=== PATIENT | male | born 1950 | race Caucasian/White ===

== ENCOUNTER 2019-01-05 18:07 | Inpatient (IN) | payer MEDICARE ==
[2019-01-05] MEDS ORDERED: Nitroglycerin 0.4 MG Tab.SL SL ONE (18:21)
[2019-01-05 19:27] LABS: CHLORIDE,CL 103 mmol/L (98-107); SODIUM,NA 140 mmol/L (136-145)
[2019-01-05] MEDS ORDERED: Iopamidol 612 MG/ML 100 ML Bottle IVPUSH ONE (19:58)
[2019-01-05] MEDS ORDERED: Furosemide 40 MG/4 ML VIAL IV ONE (19:58)
--- NOTE | 2019-01-05 20:03 | CR ---
[id number] RAD/RAD Chest PA or AP 1V EXAM: SINGLE VIEW CHEST. INDICATION: SHORTNESS OF BREATH COMPARISON: NO PREVIOUS SIMILAR EXAM IS AVAILABLE FINDINGS: There appears to be in moderate edema. The cardiac silhouette is enlarged. There appear to be surgical changes of the lumbar spine. IMPRESSION: MODERATE CHF. Niko Soto MD 01/05/192001 Thank you for allowing us to participate in the care of your patient.
[2019-01-05] MEDS: amLODIPine 10 MG Tab**PT OWN PO SCH (23:00)
[2019-01-05] MEDS: LISINOPRIL 40 MG PO SCH (23:00)
[2019-01-05] MEDS: CLONIDINE 0.2 MG PO SCH (23:00)
[2019-01-05] MEDS: Sodium Chloride 0.9% 10 ML Syringe FLUSH PRN (23:36)
--- NOTE | 2019-01-06 04:19 | EDM.PDOC ---
ED HPI GENERAL MEDICAL PROBLEM - General Chief Complaint: Respiratory Problem Stated Complaint: SHORTNESS OF BREATH Time Seen by Provider: 01/05/19 18:10 Source of Information: Reports: Patient History Limitations: Reports: Respiratory Distress - History of Present Illness INITIAL COMMENTS - FREE TEXT/NARRATIVE: Pt. present to ER with complaints of respiratory distress. Pt. states that he has been experiencing progressive dyspnea over the past several months, particularly when exerting himself. Pt. has a history of severe hypertension and is on high dose lisinopril, amlodipine, and clonidine. Pt. states that [place] of his ailing mother since April and that he has not had his BP checked during that time. He states that he has been short of breath for most of the summer but worse over the past 24 hours. Denies any cardiac history. He states that he recently had a negative cardiolyte stress test in [place]. He is unsure if he has ever had an echocardiogram. No diaphoresis. No nausea, vomiting, or diarrhea. No recent productive cough or fever. Denies any sick contacts. He denies any chest pain. Pt. states that he does not have an PCP locally. Denies any peripheral edema. States that his urine output has been increased recently. Pt. is on cpap for CRISTIAN and states that he has not had a sleep study recently either. Location: Reports: Chest, Generalized Associated Symptoms: Denies: Diaphoresis, Fever/Chills, Nausea/Vomiting - Related Data Allergies Allergy/AdvReac Type Severity Reaction Status Date / Time No Known Allergies Allergy Verified 01/05/19 18:19 Home Meds: Home Meds Dorzolamide/Timolol [Cosopt 2%-0.5% Ophth Soln] 1 drop EYEBOTH BID 01/05/19 [ History] Esomeprazole [NexIUM] 40 mg PO DAILY 01/05/19 [History] Fenofibrate,Micronized [Fenofibrate] 134 mg PO DAILY 01/05/19 [History] Lisinopril 40 mg PO BID 01/05/19 [History] amLODIPine Besylate [Amlodipine Besylate] 10 mg PO DAILY 01/05/19 [History] cloNIDine HCl [Catapres] 0.2 mg PO TID 01/05/19 [History] metFORMIN HCl [Metformin HCl] 1,000 mg PO BID 04/02/19 [History] Past Medical History Cardiovascular History: Reports: High Cholesterol, Hypertension Endocrine/Metabolic History: Reports: Diabetes, Type II Oncologic (Cancer) History: Reports: Other (See Below) Other Oncologic History: skin - Past Surgical History HEENT Surgical History: Reports: Tonsillectomy Musculoskeletal Surgical History: Reports: Arthroscopic Knee Social & Family History - Tobacco Use Smoking Status *Q: Former Smoker Used Tobacco, but Quit: No Month/Year Tobacco Last Used: 1996 Second Hand Smoke Exposure: No - Caffeine Use Caffeine Use: Reports: Coffee, Soda - Recreational Drug Use Recreational Drug Use: No ED ROS GENERAL - Review of Systems Review Of Systems: See Below Constitutional: Reports: No Symptoms HEENT: Reports: No Symptoms Respiratory: Reports: Shortness of Breath, Cough Cardiovascular: Reports: No Symptoms Endocrine: Reports: Fatigue GI/Abdominal: Reports: No Symptoms : Reports: No Symptoms Musculoskeletal: Reports: No Symptoms Skin: Reports: No Symptoms Neurological: Reports: No Symptoms Psychiatric: Reports: No Symptoms Hematologic/Lymphatic: Reports: No Symptoms Immunologic: Reports: No Symptoms ED EXAM, GENERAL - Physical Exam Exam: See Below Exam Limited By: No Limitations General Appearance: Alert, WD/WN, No Apparent Distress Eye Exam: Bilateral Eye: EOMI, PERRL Ears: Normal External Exam, Normal Canal, Hearing Grossly Normal, Normal TMs Ear Exam: Bilateral Ear: Auricle Normal, Canal Normal, TM normal Nose: Normal Inspection, Normal Mucosa, No Blood Throat/Mouth: Normal Inspection, Normal Lips, Normal Teeth, Normal Gums, Normal Oropharynx, Normal Voice, No Airway Compromise Head: Atraumatic, Normocephalic Neck: Normal Inspection, Supple, Non-Tender, Full Range of Motion Respiratory/Chest: Respiratory Distress, Decreased Breath Sounds, Crackles, Rales Cardiovascular: Normal Peripheral Pulses, Regular Rate, Rhythm, No Edema, No Gallop, No JVD, No Murmur Peripheral Pulses: 4+: Radial (L) GI/Abdominal: Normal Bowel Sounds, Soft, Non-Tender, No Organomegaly, No Distention, No Abnormal Bruit, No Mass, Pelvis Stable (Male) Exam: Deferred Rectal (Males) Exam: Deferred Back Exam: Normal Inspection, Full Range of Motion Extremities: Normal Inspection, Normal Range of Motion, Non-Tender, No Pedal Edema, Normal Capillary Refill Neurological: Alert, Oriented, CN II-XII Intact, Normal Cognition, Normal Gait, Normal Reflexes, No Motor/Sensory Deficits Psychiatric: Normal Affect, Normal Mood Skin Exam: Warm, Dry, Intact, Normal Color, No Rash Lymphatic: No Adenopathy EKG INTERPRETATION Rhythm: NSR [place]: Normal P-Wave: Present QRS: Normal ST-T: Normal QT: Normal Course - Vital Signs Last Recorded V/S: Last Vital Signs Temp 37.1 C 01/06/19 01:36 Pulse 57 L 01/06/19 01:36 Resp 18 01/06/19 01:36 BP 146/65 H 01/06/19 01:36 Pulse Ox 95 01/05/19 22:00 - Orders/Labs/Meds Orders: Active Orders 24 hr Category Date Time Status Cardiac Monitoring [RC] 06,10,14,18,22,02 Care 01/05/19 18:19 Active EKG Documentation Completion [] STAT Care 01/05/19 18:20 Active Oxygen Therapy [] 08,20 Care 01/05/19 18:20 Active PE Chest [Ang Chest] [CT] Stat Exams 01/05/19 19:55 Taken CULTURE BLOOD [BC] Stat Lab 01/05/19 18:38 Results CULTURE BLOOD [BC] Stat Lab 01/05/19 18:47 Received Sodium Chloride 0.9% [Saline Flush] Med 01/05/19 18:19 Active 10 ml FLUSH ASDIRECTED PRN Blood Culture x2 Reflex Set [OM.PC] Stat Oth 01/05/19 18:20 Ordered Peripheral IV Insertion Adult [OM.PC] Routine Oth 01/05/19 18:20 Ordered Medication Orders Amlodipine Besylate (Norvasc) 10 mg PO BEDTIME [facility] Last Admin: 01/05/19 23:00 Dose: 10 mg Dorzolamide/Timolol (Cosopt 2%-0.5% Ophth Soln) 0 ml EYEBOTH BID [facility] Fenofibrate (Fenofibrate) 134 mg PO DAILY [facility] Furosemide (Lasix) 40 mg IV ONETIME ONE Stop: 01/06/19 06:01 Clonidine 0.2mg Pt (Own) 0.2 each PO TID [facility] Last Admin: 01/05/19 23:00 Dose: 0.2 each Lisinopril 40mg Pt (Own) 40 each PO BID [facility] Last Admin: 01/05/19 23:00 Dose: 40 each Metformin 1000mg (Pt Own) 1,000 each PO BID [facility] Omeprazole (Omeprazole) 40 mg PO DAILY [facility] Sodium Chloride (Saline Flush) 10 ml FLUSH ASDIRECTED PRN PRN Reason: Keep Vein Open Last Admin: 01/05/19 23:36 Dose: 10 ml Labs: Laboratory Tests 01/05/19 01/05/19 01/05/19 Range/Units 18:47 18:47 18:47 WBC 9.4 (4.0-10.0) x10^3/uL RBC 4.59 (4.5-6.0) x10^6/uL Hgb 13.4 L (14.0-18.0) g/dL Hct 40.3 (40.0-52.0) % MCV 87.8 (78.0-93.0) fL MCH 29.2 (26.0-32.0) pg MCHC 33.3 (32.0-36.0) g/dL RDW Coeff of Anaya 13.7 (10.0-15.0) % Plt Count 209 (130-400) x10^3/uL Neut % (Auto) 71.6 (50.0-80.0) % Lymph % (Auto) 17.0 L (25.0-50.0) % [place] % (Auto) 8.8 (2.0-11.0) % Eos % (Auto) 2.3 (0.0-4.0) % Baso % (Auto) 0.3 (0.2-1.2) % PT 10.6 (10.0-12.8) SEC INR 0.9 L (2.0-3.5) D-Dimer, Quantitative (<=0.58) mg/LFEU Sodium 140 (136-145) mmol/L Potassium 4.0 (3.5-5.1) mmol/L Chloride 103 (98-107) mmol/L Carbon Dioxide 24 (21-32) mmol/L Anion Gap 17.0 (10-20) mmol/L BUN 12 (7-18) mg/dL Creatinine 0.8 (0.70-1.30) mg/dL Est Cr Clr Drug Dosing 88.72 mL/min Estimated GFR (MDRD) > 60 Glucose 118 H (74-106) mg/dL Lactic Acid (0.4-2.0) mmol/L Calcium 9.4 (8.5-10.1) mg/dL Corrected Calcium 9.56 (8.5-10.1) mg/dL Phosphorus 3.5 (2.6-4.7) mg/dL Magnesium 1.7 L (1.8-2.4) mg/dL Total Bilirubin 1.2 H (0.2-1.0) mg/dL AST 26 (15-37) U/L ALT 45 (16-63) U/L Alkaline Phosphatase 78 (46-116) U/L POC Troponin I (0.00-0.08) ng/mL C-Reactive Protein 1.6 H (<=0.9) mg/dL NT-Pro-B Natriuret Pep 312 H (<=125) pg/mL Total Protein 7.5 (6.4-8.2) g/dL Albumin 3.8 (3.4-5.0) g/dL Globulin 3.7 Albumin/Globulin Ratio 1.03 TSH, Ultra Sensitive < 0.007 L (0.358-3.74) uIU/mL 01/05/19 01/05/19 01/05/19 Range/Units 18:47 18:47 18:53 WBC (4.0-10.0) x10^3/uL RBC (4.5-6.0) x10^6/uL Hgb (14.0-18.0) g/dL Hct (40.0-52.0) % MCV (78.0-93.0) fL MCH (26.0-32.0) pg MCHC (32.0-36.0) g/dL RDW Coeff of Anaya (10.0-15.0) % Plt Count (130-400) x10^3/uL Neut % (Auto) (50.0-80.0) % Lymph % (Auto) (25.0-50.0) % [place] % (Auto) (2.0-11.0) % Eos % (Auto) (0.0-4.0) % Baso % (Auto) (0.2-1.2) % PT (10.0-12.8) SEC INR (2.0-3.5) D-Dimer, Quantitative 1.63 H (<=0.58) mg/LFEU Sodium (136-145) mmol/L Potassium (3.5-5.1) mmol/L Chloride (98-107) mmol/L Carbon Dioxide (21-32) mmol/L Anion Gap (10-20) mmol/L BUN (7-18) mg/dL Creatinine (0.70-1.30) mg/dL Est Cr Clr Drug Dosing mL/min Estimated GFR (MDRD) Glucose (74-106) mg/dL Lactic Acid 1.4 (0.4-2.0) mmol/L Calcium (8.5-10.1) mg/dL Corrected Calcium (8.5-10.1) mg/dL Phosphorus (2.6-4.7) mg/dL Magnesium (1.8-2.4) mg/dL Total Bilirubin (0.2-1.0) mg/dL AST (15-37) U/L ALT (16-63) U/L Alkaline Phosphatase (46-116) U/L POC Troponin I 0.03 (0.00-0.08) ng/mL C-Reactive Protein (<=0.9) mg/dL NT-Pro-B Natriuret Pep (<=125) pg/mL Total Protein (6.4-8.2) g/dL Albumin (3.4-5.0) g/dL Globulin Albumin/Globulin Ratio TSH, Ultra Sensitive (0.358-3.74) uIU/mL Meds: Medications Generic Name Dose Route Start Last Admin Trade Name Freq PRN Reason Stop Dose Admin Amlodipine Besylate 10 mg 01/05/19 23:00 01/05/19 23:00 Norvasc PO 10 mg BEDTIME KELSEY Administration Dorzolamide/Timolol 0 ml 01/06/19 08:00 Cosopt 2%-0.5% Ophth Soln EYEBOTH BID [facility]ELSE[facility] Fenofibrate 134 mg 01/06/19 08:00 Fenofibrate PO DAILY [facility] Furosemide 40 mg 01/06/19 06:00 Lasix IV 01/06/19 06:01 ONETIME ONE Clonidine 0.2mg Pt 0.2 each 01/05/19 23:00 01/05/19 23:00 Own PO 0.2 each TID KELSEY Administration Lisinopril 40mg Pt 40 each 01/05/19 23:00 01/05/19 23:00 Own PO 40 each BID KELSEY Administration Metformin 1000mg 1,000 each 01/06/19 08:00 Pt Own PO BID [facility]ELSEY Omeprazole 40 mg 01/06/19 08:00 Omeprazole PO DAILY KELSE[facility] Sodium Chloride 10 ml 01/05/19 18:19 01/05/19 23:36 Saline Flush FLUSH 10 ml ASDIRECTED PRN Administration Keep Vein Open Discontinued Medications Generic Name Dose Route Start Last Admin Trade Name Freq PRN Reason Stop Dose Admin Furosemide 60 mg 01/05/19 19:58 01/05/19 20:29 Lasix IV 01/05/19 19:59 60 mg ONETIME ONE Administration Iopamidol 100 ml 01/05/19 19:58 01/05/19 20:27 Isovue-300 (61%) IVPUSH 01/05/19 19:59 100 ml ONETIME ONE Administration Nitroglycerin 0.4 mg 01/05/19 18:21 01/05/19 18:31 Nitrostat SL 01/05/19 18:22 0.4 mg ONETIME ONE Administration - Radiology Interpretation Free Text/Narrative:: chest x-ray shows moderate CHF. CT angiogram negative for PE but also showed pulmonary edema. No obvious infiltrate noted. Departure - Departure Time of Disposition: 21:35 Disposition: Refer to Observation Clinical Impression: Hypertensive crisis, CHF (congestive heart failure), Hypoxemia - Discharge Information - Problem List Review Problem List Initiated/Reviewed/Updated: Yes - My Orders Last 24 Hours: My Active Orders 01/05/19 18:19 Cardiac Monitoring [RC] 06,10,14,18,22,02 Sodium Chloride 0.9% [Saline Flush] 10 ml FLUSH ASDIRECTED PRN 01/05/19 18:20 EKG Documentation Completion [RC] STAT Oxygen Therapy [RC] 08,20 Blood Culture x2 Reflex Set [OM.PC] Stat Peripheral IV Insertion Adult [OM.PC] Routine 01/05/19 18:38 CULTURE BLOOD [BC] Stat 01/05/19 18:47 CULTURE BLOOD [BC] Stat 01/05/19 19:55 PE Chest [Ang Chest] [CT] Stat - Assessment/Plan Last 24 Hours: My Active Orders 04/02/19 18:19 Cardiac Monitoring [RC] 06,10,14,18,22,02 Sodium Chloride 0.9% [Saline Flush] 10 ml FLUSH ASDIRECTED PRN 01/05/19 18:20 EKG Documentation Completion [RC] STAT Oxygen Therapy [RC] 08,20 Blood Culture x2 Reflex Set [OM.PC] Stat Peripheral IV Insertion Adult [OM.PC] Routine 01/05/19 18:38 CULTURE BLOOD [BC] Stat 01/05/19 18:47 CULTURE BLOOD [BC] Stat 01/05/19 19:55 PE Chest [Ang Chest] [CT] Stat Plan: Pt. will be admitted observation. I spoke with Dr. Mary, cardiology at [place] who feels that the patient does not need echocardiogram emergently and advised admitting him at least overnight and continuing to diurese the patient. He was given one dose of Lasix 60mg IV and states that he is feeling much better. Will give him a second dose of lasix 40mg IV in the AM and then will transition him to chlorthalidone 25mg daily. Troponin and BMP in AM. Continue with O2 as needed. His will be retrieving his CPAP from home. Will fluid restrict patient for the night. Will require close follow-up, echo and stress test after discharge, as well as a sleep study. He will also need a PCP. He is a code 1.
[2019-01-06] MEDS: Sodium Chloride 0.9% 10 ML Syringe FLUSH PRN (05:58)
[2019-01-06] MEDS ORDERED: Furosemide 40 MG/4 ML VIAL IV ONE (06:00)
[2019-01-06 07:09] LABS: ANION GAP 15.6 mmol/L (10-20); CHLORIDE,CL 102 mmol/L (98-107); SODIUM,NA 141 mmol/L (136-145)
[2019-01-06] MEDS ORDERED: Pneumococcal 23-Valent Conjugate Vaccine 0.5 ML Syringe IM ONE (07:50)
--- NOTE | 2019-01-06 08:42 | CT ---
[id number] CT/CTA Chest EXAM: CTA Chest CLINICAL DATA: DYSPNEA,CHEST PAIN,+ DIMER. COMPARISON: Radiograph from yesterday. FINDINGS: LUNGS: Small bilateral pleural effusions and associated atelectasis. Bilateral symmetric interlobular septal thickening, extending into the lung apices. Bilateral central symmetric and basal predominant peribronchial thickening. Patchy areas of groundglass parenchymal opacification. Findings are consistent with fluid retention in the chest. No suspicious nodules or masses. HEART AND GREAT VESSELS: Cardiomegaly, most prominent in the left atrium. Coronary artery atherosclerosis. No pericardial effusion. Thoracic aorta is normal in caliber with mild changes of atherosclerosis. Motion artifact limits evaluation of the lung bases. Within this limitation, there is no evidence of a pulmonary embolus. MEDIASTINUM AND LYMPHATICS: Multiple prominent bilateral hilar and mediastinal lymph nodes. No enlargement by pathologic size criteria. However, large number of nodes visualized is abnormal. Finding is nonspecific. UPPER ABDOMINAL ORGANS: Unremarkable. BONES: Thoracic kyphosis with bridging anterior osteophytes. Osteophyte formation is out of proportion to degenerative disc disease, resulting in anterior fusion. Additionally, there is fusion of the sternomanubrial joint and partial fusion of the bilateral facet joints throughout the visualized portion of the spine. IMPRESSION: Negative for pulmonary embolus. Findings most consistent with acute CHF exacerbation, described above. Isauro Linares MD 01/06/19 0842 Thank you for allowing us to participate in the care of your patient.
[2019-01-06] MEDS: CLONIDINE 0.2 MG PO SCH ×3 (09:22→20:06)
[2019-01-06] MEDS: METFORMIN 1000 MG PO SCH ×4 (09:23→17:48)
[2019-01-06] MEDS: Fenofibrate,Micronized 134 MG Cap PO SCH (09:24)
[2019-01-06] MEDS: TIMOLOL EYEBOTH SCH ×2 (09:25→20:04)
[2019-01-06] MEDS: LISINOPRIL 40 MG PO SCH ×2 (09:25→20:05)
[2019-01-06] MEDS: DORZOLAMIDE EYEBOTH SCH ×2 (09:25→20:04)
[2019-01-06] MEDS: Omeprazole 20 MG Cap.CR PO SCH (09:27)
--- NOTE | 2019-01-06 09:32 | PCM.PN ---
- General Info Date of Service: 01/06/19 Admission Dx/Problem (Free Text): Pt. present to ER last night with complaints of respiratory distress. Pt. states that he has been experiencing progressive dyspnea over the past several months, particularly when exerting himself. Pt. has a history of severe hypertension and is on high dose lisinopril, amlodipine, and clonidine. Pt. states that he is in [place] taking care of his ailing mother since April and that he has not had his BP checked during that time. He states that he has been short of breath for most of the summer but worse over the past 24 hours. Denies any cardiac history. He states that he recently had a negative cardiolyte stress test in [place]. He is unsure if he has ever had an echocardiogram. No diaphoresis. No nausea, vomiting, or diarrhea. No recent productive cough or fever. Denies any sick contacts. He denies any chest pain. Pt. states that he does not have an PCP locally. Denies any peripheral edema. States that his urine output has been increased recently. Pt. is on CPAP for CRISTIAN and states that he has not had a sleep study recently either. He thinks his last sleep study was about 10 years ago. Subjective Update: Patient states his breathing feels much better today. He appears to be somewhat SOB with speaking. He denies any cough. No chest pain on this admission. He denies any problems with urination or BM's. Is tolerating his diet ok. He continues to needs O2. Patient does desat into the 80's without oxygen. Otherwise, no complaints. Functional Status: Reports: Pain Controlled, Tolerating Diet, Ambulating, Urinating. Denies: New Symptoms Pain Score: 0 - Review of Systems General: Denies: Fever, Chills Pulmonary: Denies: Shortness of Breath, Cough Cardiovascular: Denies: Chest Pain, Palpitations Gastrointestinal: Denies: Abdominal Pain, Nausea, Vomiting Skin: Reports: No Symptoms Neurological: Reports: No Symptoms - Patient Data Vitals - Most Recent: Last Vital Signs Temp 36.9 C 01/06/19 06:00 Pulse 53 L 01/06/19 06:00 Resp 18 01/06/19 06:00 BP 170/60 H 01/06/19 06:00 Pulse Ox 92 L 01/06/19 06:00 Weight - Most Recent: 125.282 kg I&O - Last 24 Hours: Intake & Output 01/05/19 01/06/19 01/06/19 22:59 06:59 14:59 Intake Total 100 420 Output Total 700 1000 Balance -700 -900 420 Lab Results Last 24 Hours: Laboratory Results - last 24 hr 01/05/19 01/05/19 01/05/19 Range/Units 18:47 18:47 18:47 WBC 9.4 (4.0-10.0) x10^3/uL RBC 4.59 (4.5-6.0) x10^6/uL Hgb 13.4 L (14.0-18.0) g/dL Hct 40.3 (40.0-52.0) % MCV 87.8 (78.0-93.0) fL MCH 29.2 (26.0-32.0) pg MCHC 33.3 (32.0-36.0) g/dL RDW Coeff of Anaya 13.7 (10.0-15.0) % Plt Count 209 (130-400) x10^3/uL Neut % (Auto) 71.6 (50.0-80.0) % Lymph % (Auto) 17.0 L (25.0-50.0) % Addison % (Auto) 8.8 (2.0-11.0) % Eos % (Auto) 2.3 (0.0-4.0) % Baso % (Auto) 0.3 (0.2-1.2) % PT 10.6 (10.0-12.8) SEC INR 0.9 L (2.0-3.5) D-Dimer, Quantitative (<=0.58) mg/LFEU Sodium 140 (136-145) mmol/L Potassium 4.0 (3.5-5.1) mmol/L Chloride 103 (98-107) mmol/L Carbon Dioxide 24 (21-32) mmol/L Anion Gap 17.0 (10-20) mmol/L BUN 12 (7-18) mg/dL Creatinine 0.8 (0.70-1.30) mg/dL Est Cr Clr Drug Dosing 88.72 mL/min Estimated GFR (MDRD) > 60 Glucose 118 H (74-106) mg/dL Lactic Acid (0.4-2.0) mmol/L Calcium 9.4 (8.5-10.1) mg/dL Corrected Calcium 9.56 (8.5-10.1) mg/dL Phosphorus 3.5 (2.6-4.7) mg/dL Magnesium 1.7 L (1.8-2.4) mg/dL Total Bilirubin 1.2 H (0.2-1.0) mg/dL AST 26 (15-37) U/L ALT 45 (16-63) U/L Alkaline Phosphatase 78 (46-116) U/L POC Troponin I (0.00-0.08) ng/mL Troponin I (<=0.056) ng/mL C-Reactive Protein 1.6 H (<=0.9) mg/dL NT-Pro-B Natriuret Pep 312 H (<=125) pg/mL Total Protein 7.5 (6.4-8.2) g/dL Albumin 3.8 (3.4-5.0) g/dL Globulin 3.7 Albumin/Globulin Ratio 1.03 TSH, Ultra Sensitive < 0.007 L (0.358-3.74) uIU/mL 01/05/19 01/05/19 01/05/19 Range/Units 18:47 18:47 18:53 WBC (4.0-10.0) x10^3/uL RBC (4.5-6.0) x10^6/uL Hgb (14.0-18.0) g/dL Hct (40.0-52.0) % MCV (78.0-93.0) fL MCH (26.0-32.0) pg MCHC (32.0-36.0) g/dL RDW Coeff of Anaya (10.0-15.0) % Plt Count (130-400) x10^3/uL Neut % (Auto) (50.0-80.0) % Lymph % (Auto) (25.0-50.0) % Addison % (Auto) (2.0-11.0) % Eos % (Auto) (0.0-4.0) % Baso % (Auto) (0.2-1.2) % PT (10.0-12.8) SEC INR (2.0-3.5) D-Dimer, Quantitative 1.63 H (<=0.58) mg/LFEU Sodium (136-145) mmol/L Potassium (3.5-5.1) mmol/L Chloride (98-107) mmol/L Carbon Dioxide (21-32) mmol/L Anion Gap (10-20) mmol/L BUN (7-18) mg/dL Creatinine (0.70-1.30) mg/dL Est Cr Clr Drug Dosing mL/min Estimated GFR (MDRD) Glucose (74-106) mg/dL Lactic Acid 1.4 (0.4-2.0) mmol/L Calcium (8.5-10.1) mg/dL Corrected Calcium (8.5-10.1) mg/dL Phosphorus (2.6-4.7) mg/dL Magnesium (1.8-2.4) mg/dL Total Bilirubin (0.2-1.0) mg/dL AST (15-37) U/L ALT (16-63) U/L Alkaline Phosphatase (46-116) U/L POC Troponin I 0.03 (0.00-0.08) ng/mL Troponin I (<=0.056) ng/mL C-Reactive Protein (<=0.9) mg/dL NT-Pro-B Natriuret Pep (<=125) pg/mL Total Protein (6.4-8.2) g/dL Albumin (3.4-5.0) g/dL Globulin Albumin/Globulin Ratio TSH, Ultra Sensitive (0.358-3.74) uIU/mL 01/06/19 Range/Units 06:31 WBC (4.0-10.0) x10^3/uL RBC (4.5-6.0) x10^6/uL Hgb (14.0-18.0) g/dL Hct (40.0-52.0) % MCV (78.0-93.0) fL MCH (26.0-32.0) pg MCHC (32.0-36.0) g/dL RDW Coeff of Anaya (10.0-15.0) % Plt Count (130-400) x10^3/uL Neut % (Auto) (50.0-80.0) % Lymph % (Auto) (25.0-50.0) % Addison % (Auto) (2.0-11.0) % Eos % (Auto) (0.0-4.0) % Baso % (Auto) (0.2-1.2) % PT (10.0-12.8) SEC INR (2.0-3.5) D-Dimer, Quantitative (<=0.58) mg/LFEU Sodium 141 (136-145) mmol/L Potassium 3.6 (3.5-5.1) mmol/L Chloride 102 (98-107) mmol/L Carbon Dioxide 27 (21-32) mmol/L Anion Gap 15.6 (10-20) mmol/L BUN 14 (7-18) mg/dL Creatinine 1.1 (0.70-1.30) mg/dL Est Cr Clr Drug Dosing 64.52 mL/min Estimated GFR (MDRD) > 60 Glucose 154 H (74-106) mg/dL Lactic Acid (0.4-2.0) mmol/L Calcium 9.5 (8.5-10.1) mg/dL Corrected Calcium 9.74 (8.5-10.1) mg/dL Phosphorus (2.6-4.7) mg/dL Magnesium (1.8-2.4) mg/dL Total Bilirubin 1.2 H (0.2-1.0) mg/dL AST 23 (15-37) U/L ALT 36 (16-63) U/L Alkaline Phosphatase 72 (46-116) U/L POC Troponin I (0.00-0.08) ng/mL Troponin I 0.054 (<=0.056) ng/mL C-Reactive Protein (<=0.9) mg/dL NT-Pro-B Natriuret Pep (<=125) pg/mL Total Protein 7.5 (6.4-8.2) g/dL Albumin 3.7 (3.4-5.0) g/dL Globulin 3.8 Albumin/Globulin Ratio 0.97 TSH, Ultra Sensitive (0.358-3.74) uIU/mL Catalino Results Last 24 Hours: Microbiology 01/05/19 18:49 Influenza Type A Antigen Screen - Final Nasal, Unspecified NEGATIVE INFLUENZA A VIRUS AG Influenza Type B Antigen Screen - Final NEGATIVE INFLUENZA B VIRUS AG 01/05/19 18:38 Anaerobic Blood Culture - Final Blood - Venous Med Orders - Current: Current Medications Amlodipine Besylate (Norvasc) 10 mg PO BEDTIME [facility] Last Admin: 01/05/19 23:00 Dose: 10 mg Dorzolamide/Timolol (Cosopt 2%-0.5% Ophth Soln) 0 ml EYEBOTH BID [facility] Fenofibrate (Fenofibrate) 134 mg PO DAILY [facility] Clonidine 0.2mg Pt (Own) 0.2 each PO TID [facility] Last Admin: 01/05/19 23:00 Dose: 0.2 each Lisinopril 40mg Pt (Own) 40 each PO BID [facility] Last Admin: 01/05/19 23:00 Dose: 40 each Metformin 1000mg (Pt Own) 1,000 each PO BID [facility] Omeprazole (Omeprazole) 40 mg PO DAILY [facility] Sodium Chloride (Saline Flush) 10 ml FLUSH ASDIRECTED PRN PRN Reason: Keep Vein Open Last Admin: 01/06/19 05:58 Dose: 10 ml Discontinued Medications Furosemide (Lasix) 60 mg IV ONETIME ONE Stop: 01/05/19 19:59 Last Admin: 01/05/19 20:29 Dose: 60 mg Furosemide (Lasix) 40 mg IV ONETIME ONE Stop: 01/06/19 06:01 Last Admin: 01/06/19 05:57 Dose: 40 mg Iopamidol (Isovue-300 (61%)) 100 ml IVPUSH ONETIME ONE Stop: 01/05/19 19:59 Last Admin: 01/05/19 20:27 Dose: 100 ml Nitroglycerin (Nitrostat) 0.4 mg SL ONETIME ONE Stop: 01/05/19 18:22 Last Admin: 01/05/19 18:31 Dose: 0.4 mg Pneumococcal Polyvalent Vaccine (Pneumovax 23) 25 mcg IM .ONCE ONE Stop: 01/06/19 07:51 - Exam Quality Assessment: Supplemental Oxygen. No: Skin Breakdown General: Alert, Oriented, Cooperative, No Acute Distress Lungs: Normal Respiratory Effort, Decreased Breath Sounds, Crackles Cardiovascular: Regular Rate, Regular Rhythm GI/Abdominal Exam: Normal Bowel Sounds, Soft, Non-Tender Peripheral Pulses: 2+: Radial (L), Radial (R) Skin: Warm, Dry, Intact Neurological: No New Focal Deficit - Problem List & Annotations (1) New onset of congestive heart failure SNOMED Code(s): 05241095 Code(s): I50.9 - HEART FAILURE, UNSPECIFIED Status: Acute Priority: High Current Visit: Yes Onset Date: ~01/05/19 (2) CRISTIAN on CPAP SNOMED Code(s): 76726970 Code(s): G47.33 - OBSTRUCTIVE SLEEP APNEA (ADULT) (PEDIATRIC); Z99.89 - DEPENDENCE ON OTHER ENABLING MACHINES AND DEVICES Status: Chronic Priority: Medium Current Visit: Yes (3) Essential hypertension SNOMED Code(s): 94900575 Code(s): I10 - ESSENTIAL (PRIMARY) HYPERTENSION Status: Chronic Priority : High Current Visit: Yes (4) Mixed hyperlipidemia SNOMED Code(s): 811224631 Code(s): E78.2 - MIXED HYPERLIPIDEMIA Status: Chronic Current Visit: No (5) Obesity (BMI 30-39.9) SNOMED Code(s): 751134298, 542237001 Code(s): E66.9 - OBESITY, UNSPECIFIED Status: Chronic Current Visit: No - Problem List Review Problem List Initiated/Reviewed/Updated: Yes - My Orders Last 24 Hours: My Active Orders 01/06/19 09:06 Chest 2V [CR] Routine 01/07/19 05:11 BASIC METABOLIC PANEL,BMP [CHEM] Routine CBC WITH AUTO DIFF [HEME] Routine MAGNESIUM [CHEM] Routine - Assessment Assessment:: 1. New onset CHF 2. Essential Hypertension 3. CRISTIAN on CPAP 4. Mixed Hyperlipidemia 5. Obesity - Plan Plan:: 68 male patient admitted last night for new onset of CHF. Patient was given IV Lasix and diuresed nicely. Feeling better today. Will continue same orders today. May consider stopping amlodipine as this may cause peripheral edema. Would like patient to get started on Coreg if HR tolerated. Needs sodium restriction. Fluid restriction increased to 2L. Needs Echo after discharge and also a repeat sleep study. Patient will follow with me in clinic after discharge. Will ask Resp to do walking sats and get a baseline. Will need CHF program and full cardiac workup after discharge. Recheck labs in AM. Patient is code I. Patient agrees to transfer to a higher level of care should the need arise. EKG has been stable. May consider renal ultrasound due to refractory HTN. Will do overnight oximetry study tonight. Anticipate discharge tomorrow if patient continues to improve; if he needs additional hospital days, patient will be admitted acutely to my service.
--- NOTE | 2019-01-06 10:15 | CR ---
[id number] RAD/RAD Chest PA And Lateral EXAM: RAD Chest PA And Lateral CLINICAL DATA: CHF. SHORTNESS OF BREATH. COMPARISON: CORRELATION IS MADE WITH THE EXAM OF JANUARY 05, 2019. FINDINGS: There is mild edema which appears decreased since yesterday. The chest otherwise is stable. IMPRESSION: SLIGHT DECREASE IN EDEMA. RESIDUAL MILD EDEMA. Niko Soto MD 01/06/19 1013 Thank you for allowing us to participate in the care of your patient.
[2019-01-06] MEDS: amLODIPine 10 MG Tab**PT OWN PO SCH (20:04)
[2019-01-07 06:53] LABS: CHLORIDE,CL 104 mmol/L (98-107); SODIUM,NA 143 mmol/L (136-145)
[2019-01-07 06:57] LABS: ANION GAP 13.8 mmol/L (10-20)
[2019-01-07] MEDS: Fenofibrate,Micronized 134 MG Cap PO SCH (07:42)
[2019-01-07] MEDS: DORZOLAMIDE EYEBOTH SCH ×2 (07:44→20:16)
[2019-01-07] MEDS: TIMOLOL EYEBOTH SCH ×2 (07:44→20:16)
[2019-01-07] MEDS: CLONIDINE 0.2 MG PO SCH ×2 (07:45→15:33)
[2019-01-07] MEDS: LISINOPRIL 40 MG PO SCH (07:45)
[2019-01-07] MEDS: Omeprazole 20 MG Cap.CR PO SCH (07:46)
[2019-01-07] MEDS ORDERED: Pneumococcal 23-Valent Conjugate Vaccine 0.5 ML Syringe IM ONE (09:00)
--- NOTE | 2019-01-07 10:36 | PCM.PN ---
- General Info Date of Service: 01/07/19 Admission Dx/Problem (Free Text): Pt. present to ER 01/05/19 with complaints of respiratory distress. Pt. states that he has been experiencing progressive dyspnea over the past several months, particularly when exerting himself. Pt. has a history of severe hypertension and is on high dose lisinopril, amlodipine, and clonidine. Pt. states that he is in [place] taking care of his ailing mother since April and that he has not had his BP checked during that time. He states that he has been short of breath for most of the summer but worse over the past 24 hours. Denies any cardiac history. He states that he recently had a negative cardiolyte stress test in [place]. He is unsure if he has ever had an echocardiogram. No diaphoresis. No nausea, vomiting, or diarrhea. No recent productive cough or fever. Denies any sick contacts. He denies any chest pain. Pt. states that he does not have an PCP locally. Denies any peripheral edema. States that his urine output has been increased recently. Pt. is on CPAP for CRISTIAN and states that he has not had a sleep study recently either. He thinks his last sleep study was about 10 years ago. Subjective Update: Patient states his breathing feels much better today. He appears to be somewhat SOB with speaking. Patient does state he is developing a cough since his initial admission. No chest pain on this admission. He denies any problems with urination or BM's. Is tolerating his diet ok. He continues to needs O2. Patient does desat into the 80's without oxygen. Otherwise, no complaints. Functional Status: Reports: Tolerating Diet, Ambulating - Review of Systems General: Reports: No Symptoms HEENT: Reports: No Symptoms Pulmonary: Reports: Shortness of Breath, Cough Cardiovascular: Reports: No Symptoms Gastrointestinal: Reports: No Symptoms Genitourinary: Reports: No Symptoms Musculoskeletal: Reports: No Symptoms Skin: Reports: No Symptoms Neurological: Reports: No Symptoms Psychiatric: Reports: No Symptoms - Patient Data Vitals - Most Recent: Last Vital Signs Temp 36.6 C 01/07/19 09:45 Pulse 54 L 01/07/19 09:45 Resp 16 01/07/19 09:45 BP 173/55 H 01/07/19 09:45 Pulse Ox 97 01/07/19 09:45 Weight - Most Recent: 124.556 kg I&O - Last 24 Hours: Intake & Output 01/06/19 01/07/19 01/07/19 22:59 06:59 14:59 Intake Total 840 100 360 Output Total 1300 300 Balance -460 100 60 Lab Results Last 24 Hours: Laboratory Results - last 24 hr 01/07/19 01/07/19 Range/Units 06:30 06:30 WBC 7.7 (4.0-10.0) x10^3/uL RBC 4.36 L (4.5-6.0) x10^6/uL Hgb 12.7 L (14.0-18.0) g/dL Hct 39.1 L (40.0-52.0) % MCV 89.7 (78.0-93.0) fL MCH 29.1 (26.0-32.0) pg MCHC 32.5 (32.0-36.0) g/dL RDW Coeff of Anaya 13.6 (10.0-15.0) % Plt Count 194 (130-400) x10^3/uL Neut % (Auto) 65.0 (50.0-80.0) % Lymph % (Auto) 17.9 L (25.0-50.0) % Harrison % (Auto) 13.7 H (2.0-11.0) % Eos % (Auto) 2.9 (0.0-4.0) % Baso % (Auto) 0.5 (0.2-1.2) % Sodium 143 (136-145) mmol/L Potassium 3.8 (3.5-5.1) mmol/L Chloride 104 (98-107) mmol/L Carbon Dioxide 29 (21-32) mmol/L Anion Gap 13.8 (10-20) mmol/L BUN 20 H (7-18) mg/dL Creatinine 1.0 (0.70-1.30) mg/dL Est Cr Clr Drug Dosing 70.97 mL/min Estimated GFR (MDRD) > 60 Glucose 156 H (74-106) mg/dL Calcium 9.4 (8.5-10.1) mg/dL Magnesium 1.8 (1.8-2.4) mg/dL [facility] Results Last 24 Hours: Microbiology 01/05/19 18:47 Aerobic Blood Culture - Preliminary Blood - Venous - Lab Draw NO GROWTH AFTER 1 DAY Anaerobic Blood Culture - Preliminary NO GROWTH AFTER 1 DAY 01/05/19 18:38 Aerobic Blood Culture - Preliminary Blood - Venous NO GROWTH AFTER 1 DAY Anaerobic Blood Culture - Final Med Orders - Current: Current Medications Amlodipine Besylate (Norvasc) 10 mg PO BEDTIME [facility] Last Admin: 01/06/19 20:04 Dose: 10 mg Dorzolamide/Timolol (Cosopt 2%-0.5% Ophth Soln) 0 ml EYEBOTH BID [facility] Last Admin: 01/07/19 07:44 Dose: 1 drop Fenofibrate (Fenofibrate) 134 mg PO DAILY [facility] Last Admin: 01/07/19 07:42 Dose: 134 mg Methylprednisolone Sodium Succinate (Solu-Medrol) 40 mg IVPUSH Q8H [facility] Lisinopril 40mg Pt (Own) 40 each PO BID [facility] Last Admin: 01/07/19 07:45 Dose: 40 each Metformin 1000mg (Pt Own) 1,000 each PO BID@1200,1800 [facility] Last Admin: 01/06/19 17:48 Dose: 1,000 each Clonidine 0.2mg Pt (Own) 0 each PO TID@0800,1400,2000 [facility] Last Admin: 01/07/19 07:45 Dose: 0.2 each Omeprazole (Omeprazole) 40 mg PO DAILY [facility] Last Admin: 01/07/19 07:46 Dose: 40 mg Sodium Chloride (Saline Flush) 10 ml FLUSH ASDIRECTED PRN PRN Reason: Keep Vein Open Last Admin: 01/06/19 05:58 Dose: 10 ml Discontinued Medications Furosemide (Lasix) 60 mg IV ONETIME ONE Stop: 01/05/19 19:59 Last Admin: 01/05/19 20:29 Dose: 60 mg Furosemide (Lasix) 40 mg IV ONETIME ONE Stop: 01/06/19 06:01 Last Admin: 01/06/19 05:57 Dose: 40 mg Iopamidol (Isovue-300 (61%)) 100 ml IVPUSH ONETIME ONE Stop: 01/05/19 19:59 Last Admin: 01/05/19 20:27 Dose: 100 ml Nitroglycerin (Nitrostat) 0.4 mg SL ONETIME ONE Stop: 01/05/19 18:22 Last Admin: 01/05/19 18:31 Dose: 0.4 mg Clonidine 0.2mg Pt (Own) 0.2 each PO TID [facility] Last Admin: 01/06/19 09:22 Dose: 0.2 each Metformin 1000mg (Pt Own) 1,000 each PO BID [facility] Last Admin: 01/06/19 10:35 Dose: Not Given - Exam Quality Assessment: Supplemental Oxygen General: Alert, Oriented, Cooperative, No Acute Distress HEENT: Pupils Equal, Pupils Reactive, EOMI Lungs: Normal Respiratory Effort, Decreased Breath Sounds, Crackles Cardiovascular: Bradycardia GI/Abdominal Exam: Normal Bowel Sounds, Soft, Non-Tender, No Organomegaly, No Distention, No Abnormal Bruit, No Mass, Pelvis Stable Back Exam: Normal Inspection, Full Range of Motion Extremities: Normal Inspection, Normal Range of Motion, Non-Tender, Normal Capillary Refill, Pedal Edema (2+) Peripheral Pulses: 2+: Posterior Tibial (L), Posterior Tibial (R), Dorsalis Pedis (L), Dorsalis Pedis (R) Skin: Warm, Dry, Intact Neurological: No New Focal Deficit Psy/Mental Status: Alert, Normal Affect, Normal Mood - Problem List & Annotations (1) CHF (congestive heart failure) SNOMED Code(s): 48279808 Code(s): I50.9 - HEART FAILURE, UNSPECIFIED Status: Acute Priority: Medium Current Visit: Yes Qualifiers: Heart failure type: unspecified Heart failure chronicity: acute on chronic Qualified Code(s): I50.9 - Heart failure, unspecified - Problem List Review Problem List Initiated/Reviewed/Updated: Yes - My Orders Last 24 Hours: My Active Orders 01/07/19 10:27 PRO B-TYPE NATRIUR PEPT,BNPPRO [CHEM] Stat 01/07/19 10:29 Chest 2V [CR] Routine 01/07/19 10:30 methylPREDNISolone Sod Succ [Solu-MEDROL] 40 mg IVPUSH Q8H - Assessment Assessment:: 1. New onset CHF 2. Essential Hypertension 3. CRISTIAN on CPAP 4. Mixed Hyperlipidemia 5. Obesity - Plan Plan:: 68 male patient admitted last night for new onset of CHF. Patient was given IV Lasix and diuresed nicely. Feeling better today. Will continue same orders today. May consider stopping amlodipine as this may cause peripheral edema. Would like patient to get started on Coreg if HR tolerated. Needs sodium restriction. Fluid restriction increased to 2L. Needs Echo after discharge and also a repeat sleep study. Patient will follow with me in clinic after discharge. Will ask Resp to do walking sats and get a baseline. Will need CHF program and full cardiac workup after discharge. Recheck labs in AM. Patient is code I. Patient agrees to transfer to a higher level of care should the need arise. EKG has been stable. May consider renal ultrasound due to refractory HTN. Will do overnight oximetry study tonight. Anticipate discharge tomorrow if patient continues to improve; if he needs additional hospital days, patient will be admitted acutely to my service. Saw patient today. Continues to have SOB and desaturations while walking, even with supplemental oxygen. Will get an additional chest x-ray, recheck his Pro- Bnp and diurese with Lasix if needed. I do feel he will benefit from 1-2 days additional inpatient and will transfer him to acute services with Rigo Sanchez following.
[2019-01-07] MEDS: methylPREDNISolone Sodium Succinate 40 MG/1 ML SDV IVPUSH SCH ×2 (11:46→18:30)
[2019-01-07] MEDS: METFORMIN 1000 MG PO SCH (11:52)
[2019-01-07] MEDS ORDERED: cloNIDine 0.1 MG Tab PO SCH (14:59)
--- NOTE | 2019-01-07 15:23 | CR ---
[id number] RAD/RAD Chest PA And Lateral EXAM: RAD Chest PA And Lateral INDICATION: SHORTNESS OF BREATH. COMPARISON: Yesterday. DISCUSSION: Cardiomediastinal silhouette is stable in size and contour compared to yesterday. Lungs demonstrate a mild amount of bibasal reticulation with blunting of the costophrenic sulci. Findings are similar to the prior examination and most consistent with a mild amount of retained fluid in the chest. No evidence of pneumonia. IMPRESSION: Overall, no significant change from yesterday. Isauro Linares MD 01/07/19 1521 Thank you for allowing us to participate in the care of your patient.
[2019-01-07] MEDS: cloNIDine 0.1 MG Tab PO SCH ×2 (15:34→20:12)
[2019-01-07] MEDS: metFORMIN 500 MG Tab PO SCH (18:30)
[2019-01-07] MEDS: Lisinopril 20 MG Tab PO SCH (20:12)
[2019-01-07] MEDS: amLODIPine 10 MG Tab PO SCH (20:13)
--- NOTE | 2019-01-07 22:28 | PCM.HP ---
H&P History of Present Illness - General Date of Service: 01/07/19 Admit Problem/Dx: Acute new onset CHF Hypoxia O2 dependence SOB DM Type II Refractory Essential Hypertension Obesity Hyperlipidemia Hypothyroidism, Acquired Source of Information: Patient, Family, Old Records, RN, RN Notes Reviewed History Limitations: Reports: No Limitations - History of Present Illness Initial Comments - Free Text/Narative: Pt. present to ER 01/05/19 with complaints of respiratory distress. Pt. states that he has been experiencing progressive dyspnea over the past several months, particularly when exerting himself. Pt. has a history of severe hypertension and is on high dose lisinopril, amlodipine, and clonidine. Pt. states that he is in [place] taking care of his ailing mother since April and that he has not had his BP checked during that time. He states that he has been short of breath for most of the summer but worse over the past 24 hours. Denies any cardiac history. He states that he recently had a negative cardiolyte stress test in [place]. He is unsure if he has ever had an echocardiogram. No diaphoresis. No nausea, vomiting, or diarrhea. No recent productive cough or fever. Denies any sick contacts. He denies any chest pain. Pt. states that he does not have an PCP locally. Denies any peripheral edema. States that his urine output has been increased recently. Pt. is on CPAP for CRISTIAN and states that he has not had a sleep study recently either. He thinks his last sleep study was about 10 years ago. Patient continues to require oxygen around the clock. Sats are worse with activity. Patient has a mild non-productive cough. CXR continues to show mild edema. Sats mids 80's on room air. Patient was never on any O2 prior to this admission. Patient also has a new diagnosis of Aquired Hypothyroidism. Patient will be admitted to my service for acute cares today for hypoxia, new onset CHF, SOB, and O2 dependence. NOTE: Patient seen and examined by me as an provider Symptom Onset Date: 01/05/19 - Related Data Allergies/Adverse Reactions: Allergies Allergy/AdvReac Type Severity Reaction Status Date / Time No Known Allergies Allergy Verified 01/05/19 18:19 Home Medications: Home Meds Dorzolamide/Timolol [Cosopt 2%-0.5% Ophth Soln] 1 drop EYEBOTH BID 01/05/19 [ History] Esomeprazole [NexIUM] 40 mg PO DAILY 01/05/19 [History] Fenofibrate,Micronized [Fenofibrate] 134 mg PO DAILY 01/05/19 [History] Lisinopril 40 mg PO BID 01/05/19 [History] amLODIPine Besylate [Amlodipine Besylate] 10 mg PO DAILY 01/05/19 [History] cloNIDine HCl [Catapres] 0.2 mg PO TID 01/05/19 [History] metFORMIN HCl [Metformin HCl] 1,000 mg PO BID 01/05/19 [History] Past Medical History Cardiovascular History: Reports: High Cholesterol, Hypertension Endocrine/Metabolic History: Reports: Diabetes, Type II Oncologic (Cancer) History: Reports: Other (See Below) Other Oncologic History: skin - Past Surgical History HEENT Surgical History: Reports: Tonsillectomy Musculoskeletal Surgical History: Reports: Arthroscopic Knee Social & Family History - Family History Family Medical History: Noncontributory - Tobacco Use Smoking Status *Q: Former Smoker Used Tobacco, but Quit: No Month/Year Tobacco Last Used: 1996 Second Hand Smoke Exposure: No - Caffeine Use Caffeine Use: Reports: Coffee, Soda - Recreational Drug Use Recreational Drug Use: No - Living Situation & Occupation Living situation: Reports: , with Spouse, with Significant Other Occupation: Retired H&P Review of Systems - Review of Systems: Review Of Systems: See Below General: Denies: Fever, Chills Pulmonary: Reports: Shortness of Breath, Cough. Denies: Sputum Cardiovascular: Reports: Dyspnea on Exertion. Denies: Chest Pain, Palpitations Gastrointestinal: Denies: Abdominal Pain, Nausea, Vomiting Skin: Reports: No Symptoms Psychiatric: Reports: No Symptoms Exam - Exam Exam: See Below - Vital Signs Vital Signs: Last Vital Signs Temp 36.1 C 01/07/19 21:50 Pulse 58 L 01/07/19 21:50 Resp 20 01/07/19 21:50 BP 107/59 L 01/07/19 21:50 Pulse Ox 95 01/07/19 22:08 Weight: 124.556 kg - Exam Quality Assessment: Supplemental Oxygen. No: DVT Prophylaxis, Skin Breakdown General: Alert, Oriented, Cooperative Lungs: Clear to Auscultation, Normal Respiratory Effort, Decreased Breath Sounds Cardiovascular: Regular Rate, Regular Rhythm GI/Abdominal Exam: Normal Bowel Sounds, Soft, Non-Tender Extremities: No Pedal Edema Peripheral Pulses: 2+: Radial (L), Radial (R) Skin: Warm, Dry, Intact Neuro Extensive - Mental Status: Alert, Oriented x3 - Patient Data Lab Results Last 24 hrs: Laboratory Results - last 24 hr 01/07/19 01/07/19 01/07/19 Range/Units 06:30 06:30 06:30 WBC 7.7 (4.0-10.0) x10^3/uL RBC 4.36 L (4.5-6.0) x10^6/uL Hgb 12.7 L (14.0-18.0) g/dL Hct 39.1 L (40.0-52.0) % MCV 89.7 (78.0-93.0) fL MCH 29.1 (26.0-32.0) pg MCHC 32.5 (32.0-36.0) g/dL RDW Coeff of Anaya 13.6 (10.0-15.0) % Plt Count 194 (130-400) x10^3/uL Neut % (Auto) 65.0 (50.0-80.0) % Lymph % (Auto) 17.9 L (25.0-50.0) % Falls % (Auto) 13.7 H (2.0-11.0) % Eos % (Auto) 2.9 (0.0-4.0) % Baso % (Auto) 0.5 (0.2-1.2) % Sodium 143 (136-145) mmol/L Potassium 3.8 (3.5-5.1) mmol/L Chloride 104 (98-107) mmol/L Carbon Dioxide 29 (21-32) mmol/L Anion Gap 13.8 (10-20) mmol/L BUN 20 H (7-18) mg/dL Creatinine 1.0 (0.70-1.30) mg/dL Est Cr Clr Drug Dosing 70.97 mL/min Estimated GFR (MDRD) > 60 Glucose 156 H (74-106) mg/dL POC Glucose (74-106) mg/dL Calcium 9.4 (8.5-10.1) mg/dL Magnesium 1.8 (1.8-2.4) mg/dL NT-Pro-B Natriuret Pep 142 H (<=125) pg/mL 01/07/19 Range/Units 20:24 WBC (4.0-10.0) x10^3/uL RBC (4.5-6.0) x10^6/uL Hgb (14.0-18.0) g/dL Hct (40.0-52.0) % MCV (78.0-93.0) fL MCH (26.0-32.0) pg MCHC (32.0-36.0) g/dL RDW Coeff of Anaya (10.0-15.0) % Plt Count (130-400) x10^3/uL Neut % (Auto) (50.0-80.0) % Lymph % (Auto) (25.0-50.0) % Falls % (Auto) (2.0-11.0) % Eos % (Auto) (0.0-4.0) % Baso % (Auto) (0.2-1.2) % Sodium (136-145) mmol/L Potassium (3.5-5.1) mmol/L Chloride (98-107) mmol/L Carbon Dioxide (21-32) mmol/L Anion Gap (10-20) mmol/L BUN (7-18) mg/dL Creatinine (0.70-1.30) mg/dL Est Cr Clr Drug Dosing mL/min Estimated GFR (MDRD) Glucose (74-106) mg/dL POC Glucose 217 H (74-106) mg/dL Calcium (8.5-10.1) mg/dL Magnesium (1.8-2.4) mg/dL NT-Pro-B Natriuret Pep (<=125) pg/mL Result Diagrams: 01/07/19 06:30 01/07/19 06:30 Catalino Results Last 24 hrs: Microbiology 01/05/19 18:47 Aerobic Blood Culture - Preliminary Blood - Venous - Lab Draw NO GROWTH AFTER 2 DAYS Anaerobic Blood Culture - Preliminary NO GROWTH AFTER 2 DAYS 01/05/19 18:38 Aerobic Blood Culture - Preliminary Blood - Venous NO GROWTH AFTER 2 DAYS Anaerobic Blood Culture - Final *Q Meaningful Use (ADM) - VTE *Q VTE Criteria *Q: No risk for falls - Problem List (1) New onset of congestive heart failure SNOMED Code(s): 72349469 ICD Code: I50.9 - HEART FAILURE, UNSPECIFIED Status: Acute Priority: High Current Visit: Yes Onset Date: ~01/05/19 (2) CRISTIAN on CPAP SNOMED Code(s): 82965962 ICD Code: G47.33 - OBSTRUCTIVE SLEEP APNEA (ADULT) (PEDIATRIC); Z99.89 - DEPENDENCE ON OTHER ENABLING MACHINES AND DEVICES Status: Chronic Priority: Medium Current Visit: No (3) Essential hypertension SNOMED Code(s): 89214153 ICD Code: I10 - ESSENTIAL (PRIMARY) HYPERTENSION Status: Chronic Priority : Medium Current Visit: No (4) Mixed hyperlipidemia SNOMED Code(s): 123478909 ICD Code: E78.2 - MIXED HYPERLIPIDEMIA Status: Chronic Current Visit: No (5) Obesity (BMI 30-39.9) SNOMED Code(s): 093927968, 621140851 ICD Code: E66.9 - OBESITY, UNSPECIFIED Status: Chronic Current Visit: No (6) Hypothyroidism (acquired) SNOMED Code(s): 038554117 ICD Code: E03.9 - HYPOTHYROIDISM, UNSPECIFIED Status: Acute Priority: Medium Current Visit: Yes (7) DM2 (diabetes mellitus, type 2) SNOMED Code(s): 93212501 ICD Code: E11.9 - TYPE 2 DIABETES MELLITUS WITHOUT COMPLICATIONS Status: Chronic Current Visit: No Qualifiers: Diabetes mellitus penitentiary insulin use: without long term care pharmacist use Diabetes mellitus complication status: without complication Qualified Code(s): E11.9 - Type 2 diabetes mellitus without complications Problem List Initiated/Reviewed/Updated: Yes Orders Last 24hrs: Active Orders 24 hr Category Date Time Status Admission Status [Patient Status] [ADT] Routine ADT 01/07/19 13:42 Active Accu Check [Blood Glucose Check, Bedside] [RC] 07,11,17 Care 01/07/19 20:16 Active ,20 Lisinopril [Prinivil] Med 01/07/19 20:00 Active 40 mg PO BID amLODIPine [Norvasc] Med 01/07/19 20:00 Active 10 mg PO BEDTIME cloNIDine [Catapres] Med 01/07/19 15:15 Active 0.2 mg PO TID@0800,1400,2000 metFORMIN [Glucophage] Med 01/07/19 18:00 Active 1,000 mg PO BID@1200,1800 methylPREDNISolone Sod Succ [Solu-MEDROL] Med 01/07/19 10:30 Active 40 mg IVPUSH Q8H Medication Orders Amlodipine Besylate (Norvasc) 10 mg PO BEDTIME [facility] Last Admin: 01/07/19 20:13 Dose: 10 mg Clonidine HCl (Catapres) 0.2 mg PO TID@0800,1400,2000 [facility] Last Admin: 01/07/19 20:12 Dose: 0.2 mg Admin: 01/07/19 15:34 Dose: 0.2 mg Dorzolamide/Timolol (Cosopt 2%-0.5% Ophth Soln) 0 ml EYEBOTH BID [facility] Last Admin: 01/07/19 20:16 Dose: 1 drop Admin: 01/07/19 07:44 Dose: 1 drop Admin: 01/06/19 20:04 Dose: 1 drop Admin: 01/06/19 09:25 Dose: 1 drop Fenofibrate (Fenofibrate) 134 mg PO DAILY [facility] Last Admin: 01/07/19 07:42 Dose: 134 mg Admin: 01/06/19 09:24 Dose: 134 mg Lisinopril (Prinivil) 40 mg PO BID [facility] Last Admin: 01/07/19 20:12 Dose: 40 mg Metformin HCl (Glucophage) 1,000 mg PO BID@1200,1800 [facility] Last Admin: 01/07/19 18:30 Dose: 1,000 mg Methylprednisolone Sodium Succinate (Solu-Medrol) 40 mg IVPUSH Q8H [facility] Last Admin: 01/07/19 18:30 Dose: 40 mg Admin: 01/07/19 11:46 Dose: 40 mg Omeprazole (Omeprazole) 40 mg PO DAILY [facility] Last Admin: 01/07/19 07:46 Dose: 40 mg Admin: 01/06/19 09:27 Dose: 40 mg Sodium Chloride (Saline Flush) 10 ml FLUSH ASDIRECTED PRN PRN Reason: Keep Vein Open Last Admin: 01/06/19 05:58 Dose: 10 ml Admin: 01/05/19 23:36 Dose: 10 ml Assessment/Plan Comment:: 68 male patient with a past medical history of diabetes, essential hypertension , mixed hyperlipidemia, CRISTIAN on CPAP was admitted to observation on January 05, 2018 for a primary diagnosis of new onset congestive heart failure. Patient was given IV Lasix and diuresed nicely. Feeling better today. Will continue same orders today. May consider stopping amlodipine as this may cause peripheral edema. Would like patient to get started on Coreg if HR tolerated. Needs sodium restriction. Fluid restriction increased to 2L. Needs Echo after discharge and also a repeat sleep study. Patient will follow with me in clinic after discharge. Will ask Resp to do walking sats and get a baseline. Will need CHF program and full cardiac workup after discharge. Recheck labs in AM. Patient is code I. Patient agrees to transfer to a higher level of care should the need arise. EKG has been stable. May consider renal ultrasound due to refractory HTN. Home O2 eval today indicates patient requires O2 with and without activity. Patient admitted to my service today for O2 dependence (new), desaturation with activity, management of new onset CHF, new acquired hypothyroidism with asymptomatic bradycardia. I do anticipate an additional 1-2 days of monitoring pulmonary and cardia status. Patient is a Code I. NOTE: This patient was seen and examined by me as an provider.
[2019-01-08] MEDS: methylPREDNISolone Sodium Succinate 40 MG/1 ML SDV IVPUSH SCH (02:32)
[2019-01-08] MEDS: Sodium Chloride 0.9% 10 ML Syringe FLUSH PRN (02:32)
[2019-01-08 07:00] LABS: CHLORIDE,CL 105 mmol/L (98-107); SODIUM,NA 143 mmol/L (136-145)
[2019-01-08 07:01] LABS: ANION GAP 15.9 mmol/L (10-20)
[2019-01-08] MEDS: cloNIDine 0.1 MG Tab PO SCH ×3 (07:53→20:11)
[2019-01-08] MEDS: Omeprazole 20 MG Cap.CR PO SCH (07:53)
[2019-01-08] MEDS: Lisinopril 20 MG Tab PO SCH ×2 (07:53→20:11)
[2019-01-08] MEDS: Fenofibrate,Micronized 134 MG Cap PO SCH (07:53)
[2019-01-08] MEDS: DORZOLAMIDE EYEBOTH SCH ×2 (07:54→20:12)
[2019-01-08] MEDS: TIMOLOL EYEBOTH SCH ×2 (07:54→20:12)
[2019-01-08] MEDS ORDERED: Magnesium Sulfate/Water 2 GM in Premix Bag 1 BAG IV ONE (08:26)
[2019-01-08 09:12] LABS: HEMOGLOBIN A1C 6.8 % (4.5-6.2)
--- NOTE | 2019-01-08 10:52 | PCM.PN ---
- General Info Date of Service: 01/08/19 Admission Dx/Problem (Free Text): Acute new onset CHF Hypoxia O2 dependence SOB DM Type II Refractory Essential Hypertension Obesity Hyperlipidemia Hypothyroidism, Acquired Subjective Update: Patient states his breathing feels much better today. He appears to be somewhat SOB with speaking. Patient does state he is developing a cough since his initial admission. No chest pain on this admission. He denies any problems with urination or BM's. Is tolerating his diet ok. He continues to needs O2. Patient does desat into the 80's without oxygen. Otherwise, no complaints. Functional Status: Reports: Pain Controlled, Tolerating Diet, Ambulating, Urinating. Denies: New Symptoms Pain Score: 0 - Review of Systems General: Denies: Fever, Weakness Pulmonary: Denies: Shortness of Breath, Cough Cardiovascular: Denies: Chest Pain, Palpitations Gastrointestinal: Denies: Abdominal Pain, Nausea, Vomiting Skin: Reports: No Symptoms Neurological: Reports: No Symptoms - Patient Data Vitals - Most Recent: Last Vital Signs Temp 36.6 C 01/08/19 10:00 Pulse 64 01/08/19 10:00 Resp 18 01/08/19 10:00 BP 132/63 01/08/19 10:00 Pulse Ox 95 01/08/19 10:00 Weight - Most Recent: 123.422 kg I&O - Last 24 Hours: Intake & Output 01/07/19 01/08/19 01/08/19 22:59 06:59 14:59 Intake Total 840 300 240 Output Total 325 500 Balance 515 -200 240 Lab Results Last 24 Hours: Laboratory Results - last 24 hr 01/07/19 01/07/19 01/08/19 Range/Units 06:30 20:24 06:25 WBC (4.0-10.0) x10^3/uL RBC (4.5-6.0) x10^6/uL Hgb (14.0-18.0) g/dL Hct (40.0-52.0) % MCV (78.0-93.0) fL MCH (26.0-32.0) pg MCHC (32.0-36.0) g/dL RDW Coeff of Anaya (10.0-15.0) % Plt Count (130-400) x10^3/uL Add Manual Diff Neutrophils % (Manual) (50-80) % Band Neutrophils % (0-6) % Lymphocytes % (Manual) (25-50) % Platelet Estimate Sodium (136-145) mmol/L Potassium (3.5-5.1) mmol/L Chloride (98-107) mmol/L Carbon Dioxide (21-32) mmol/L Anion Gap (10-20) mmol/L BUN (7-18) mg/dL Creatinine (0.70-1.30) mg/dL Est Cr Clr Drug Dosing mL/min Estimated GFR (MDRD) Glucose (74-106) mg/dL POC Glucose 217 H (74-106) mg/dL Hemoglobin A1c 6.8 H (4.5-6.2) % Calcium (8.5-10.1) mg/dL Magnesium (1.8-2.4) mg/dL NT-Pro-B Natriuret Pep 142 H (<=125) pg/mL 01/08/19 01/08/19 Range/Units 06:35 06:35 WBC 14.3 H (4.0-10.0) x10^3/uL RBC 4.60 (4.5-6.0) x10^6/uL Hgb 13.3 L (14.0-18.0) g/dL Hct 40.7 (40.0-52.0) % MCV 88.5 (78.0-93.0) fL MCH 28.9 (26.0-32.0) pg MCHC 32.7 (32.0-36.0) g/dL RDW Coeff of Anaya 13.4 (10.0-15.0) % Plt Count 206 (130-400) x10^3/uL Add Manual Diff Yes Neutrophils % (Manual) 83 H (50-80) % Band Neutrophils % 6 (0-6) % Lymphocytes % (Manual) 11 L (25-50) % Platelet Estimate Adequate Sodium 143 (136-145) mmol/L Potassium 3.9 (3.5-5.1) mmol/L Chloride 105 (98-107) mmol/L Carbon Dioxide 26 (21-32) mmol/L Anion Gap 15.9 (10-20) mmol/L BUN 23 H (7-18) mg/dL Creatinine 0.9 (0.70-1.30) mg/dL Est Cr Clr Drug Dosing 78.86 mL/min Estimated GFR (MDRD) > 60 Glucose 186 H (74-106) mg/dL POC Glucose (74-106) mg/dL Hemoglobin A1c (4.5-6.2) % Calcium 9.7 (8.5-10.1) mg/dL Magnesium 1.6 L (1.8-2.4) mg/dL NT-Pro-B Natriuret Pep (<=125) pg/mL Catalino Results Last 24 Hours: Microbiology 01/05/19 18:47 Aerobic Blood Culture - Preliminary Blood - Venous - Lab Draw NO GROWTH AFTER 2 DAYS Anaerobic Blood Culture - Preliminary NO GROWTH AFTER 2 DAYS 01/05/19 18:38 Aerobic Blood Culture - Preliminary Blood - Venous NO GROWTH AFTER 2 DAYS Anaerobic Blood Culture - Final Med Orders - Current: Current Medications Amlodipine Besylate (Norvasc) 10 mg PO BEDTIME [facility] Last Admin: 01/07/19 20:13 Dose: 10 mg Clonidine HCl (Catapres) 0.2 mg PO TID@0800,1400,2000 [facility] Last Admin: 01/08/19 07:53 Dose: 0.2 mg Dorzolamide/Timolol (Cosopt 2%-0.5% Ophth Soln) 0 ml EYEBOTH BID [facility] Last Admin: 01/08/19 07:54 Dose: 1 drop Fenofibrate (Fenofibrate) 134 mg PO DAILY [facility] Last Admin: 01/08/19 07:53 Dose: 134 mg Lisinopril (Prinivil) 40 mg PO BID [facility] Last Admin: 01/08/19 07:53 Dose: 40 mg Metformin HCl (Glucophage) 1,000 mg PO BID@1200,1800 [facility] Last Admin: 01/07/19 18:30 Dose: 1,000 mg Methylprednisolone Sodium Succinate (Solu-Medrol) 40 mg IVPUSH DAILY [facility] Omeprazole (Omeprazole) 40 mg PO DAILY [facility] Last Admin: 01/08/19 07:53 Dose: 40 mg Sodium Chloride (Saline Flush) 10 ml FLUSH ASDIRECTED PRN PRN Reason: Keep Vein Open Last Admin: 01/08/19 02:32 Dose: 10 ml Discontinued Medications Amlodipine Besylate (Norvasc) 10 mg PO BEDTIME [facility] Last Admin: 01/06/19 20:04 Dose: 10 mg Clonidine HCl (Catapres) 0.2 mg PO TID@0800,1400,1999 [facility] Furosemide (Lasix) 60 mg IV ONETIME ONE Stop: 01/05/19 19:59 Last Admin: 01/05/19 20:29 Dose: 60 mg Furosemide (Lasix) 40 mg IV ONETIME ONE Stop: 01/06/19 06:01 Last Admin: 01/06/19 05:57 Dose: 40 mg Magnesium Sulfate 2 gm/ Premix 50 mls @ 25 mls/hr IV ONETIME ONE Stop: 01/08/19 10:25 Last Admin: 01/08/19 09:29 Dose: 25 mls/hr Iopamidol (Isovue-300 (61%)) 100 ml IVPUSH ONETIME ONE Stop: 01/05/19 19:59 Last Admin: 01/05/19 20:27 Dose: 100 ml Methylprednisolone Sodium Succinate (Solu-Medrol) 40 mg IVPUSH Q8H [facility] Last Admin: 01/08/19 02:32 Dose: 40 mg Nitroglycerin (Nitrostat) 0.4 mg SL ONETIME ONE Stop: 01/05/19 18:22 Last Admin: 01/05/19 18:31 Dose: 0.4 mg Clonidine 0.2mg Pt (Own) 0.2 each PO TID [facility] Last Admin: 01/06/19 09:22 Dose: 0.2 each Lisinopril 40mg Pt (Own) 40 each PO BID [facility] Last Admin: 01/07/19 07:45 Dose: 40 each Metformin 1000mg (Pt Own) 1,000 each PO BID [facility] Last Admin: 01/06/19 10:35 Dose: Not Given Metformin 1000mg (Pt Own) 1,000 each PO BID@1200,1800 [facility] Last Admin: 01/07/19 11:52 Dose: 1,000 each Clonidine 0.2mg Pt (Own) 0 each PO TID@0800,1400,2000 [facility] Last Admin: 01/07/19 15:33 Dose: Not Given - Exam Quality Assessment: Supplemental Oxygen. No: DVT Prophylaxis, Skin Breakdown General: Alert, Oriented, Cooperative, No Acute Distress Lungs: Clear to Auscultation, Normal Respiratory Effort, Decreased Breath Sounds Cardiovascular: Regular Rate, Regular Rhythm GI/Abdominal Exam: Normal Bowel Sounds, Soft, Non-Tender Peripheral Pulses: 2+: Radial (L), Radial (R) Skin: Warm, Dry, Intact Neurological: No New Focal Deficit - Problem List & Annotations (1) New onset of congestive heart failure SNOMED Code(s): 83496825 Code(s): I50.9 - HEART FAILURE, UNSPECIFIED Status: Acute Priority: High Current Visit: Yes Onset Date: ~01/05/19 (2) CRISTIAN on CPAP SNOMED Code(s): 14208725 Code(s): G47.33 - OBSTRUCTIVE SLEEP APNEA (ADULT) (PEDIATRIC); Z99.89 - DEPENDENCE ON OTHER ENABLING MACHINES AND DEVICES Status: Chronic Priority: Medium Current Visit: No (3) Essential hypertension SNOMED Code(s): 14512707 Code(s): I10 - ESSENTIAL (PRIMARY) HYPERTENSION Status: Chronic Priority : Medium Current Visit: No (4) Mixed hyperlipidemia SNOMED Code(s): 909352927 Code(s): E78.2 - MIXED HYPERLIPIDEMIA Status: Chronic Current Visit: No (5) Obesity (BMI 30-39.9) SNOMED Code(s): 298204250, 271393113 Code(s): E66.9 - OBESITY, UNSPECIFIED Status: Chronic Current Visit: No (6) Hypothyroidism (acquired) SNOMED Code(s): 183056891 Code(s): E03.9 - HYPOTHYROIDISM, UNSPECIFIED Status: Acute Priority: Medium Current Visit: Yes (7) DM2 (diabetes mellitus, type 2) SNOMED Code(s): 38975853 Code(s): E11.9 - TYPE 2 DIABETES MELLITUS WITHOUT COMPLICATIONS Status: Chronic Current Visit: No Qualifiers: Diabetes mellitus watermelon harvesting supervisor insulin use: without residential use Diabetes mellitus complication status: without complication Qualified Code(s): E11.9 - Type 2 diabetes mellitus without complications - Problem List Review Problem List Initiated/Reviewed/Updated: Yes - My Orders Last 24 Hours: My Active Orders 01/07/19 20:16 Accu Check [Blood Glucose Check, Bedside] [RC] 07,11,17,20 01/09/19 08:00 methylPREDNISolone Sod Succ [Solu-MEDROL] 40 mg IVPUSH DAILY - Assessment Assessment:: 1. New onset CHF 2. Essential Hypertension 3. CRISTIAN on CPAP 4. Mixed Hyperlipidemia 5. Obesity - Plan Plan:: 68 male patient with a past medical history of diabetes, essential hypertension , mixed hyperlipidemia, CRISTIAN on CPAP was admitted to observation on January 05, 2018 for a primary diagnosis of new onset congestive heart failure. Patient was given IV Lasix and diuresed nicely. Feeling better today. Will continue same orders today. May consider stopping amlodipine as this may cause peripheral edema. Would like patient to get started on Coreg if HR tolerated. Needs sodium restriction. Fluid restriction increased to 2L. Needs Echo after discharge and also a repeat sleep study. Patient will follow with me in clinic after discharge. Will ask Resp to do walking sats and get a baseline. Will need CHF program and full cardiac workup after discharge. Recheck labs in AM. Patient is code I. Patient agrees to transfer to a higher level of care should the need arise. EKG has been stable. May consider renal ultrasound due to refractory HTN. Home O2 eval today indicates patient requires O2 with and without activity. Patient admitted to my service today for O2 dependence (new), desaturation with activity, management of new onset CHF, new acquired hypothyroidism with asymptomatic bradycardia. I do anticipate an additional 1-2 days of monitoring pulmonary and cardia status. Patient is a Code I. Possible discharge home tomorrow with home oxygen. [facility] with assist with this. [facility] NOTE: This patient was seen and examined by me as an provider.
[2019-01-08] MEDS: metFORMIN 500 MG Tab PO SCH ×2 (11:46→17:57)
[2019-01-08] MEDS: amLODIPine 10 MG Tab PO SCH (20:11)
[2019-01-09] MEDS ORDERED: methylPREDNISolone Sodium Succinate 40 MG/1 ML SDV IVPUSH SCH (08:00)
[2019-01-09] MEDS: Fenofibrate,Micronized 134 MG Cap PO SCH (08:06)
[2019-01-09] MEDS: Omeprazole 20 MG Cap.CR PO SCH (08:07)
[2019-01-09] MEDS: cloNIDine 0.1 MG Tab PO SCH (08:08)
[2019-01-09] MEDS: Lisinopril 20 MG Tab PO SCH (08:08)
[2019-01-09] MEDS: TIMOLOL EYEBOTH SCH (08:09)
[2019-01-09] MEDS: DORZOLAMIDE EYEBOTH SCH (08:09)
[2019-01-09 08:48] LABS: CHLORIDE,CL 105 mmol/L (98-107); SODIUM,NA 143 mmol/L (136-145)
[2019-01-09 08:57] LABS: ANION GAP 15.5 mmol/L (10-20)
--- NOTE | 2019-01-09 11:37 | PCM.DCSUM1 ---
Discharge Summary - Hospital Course HPI Initial Comments: Pt. present to ER 01/05/19 with complaints of respiratory distress. Pt. states that he has been experiencing progressive dyspnea over the past several months, particularly when exerting himself. Pt. has a history of severe hypertension and is on high dose lisinopril, amlodipine, and clonidine. Pt. states that he is in [place] taking care of his ailing mother since April and that he has not had his BP checked during that time. He states that he has been short of breath for most of the summer but worse over the past 24 hours. Denies any cardiac history. He states that he recently had a negative cardiolyte stress test in [place]. He is unsure if he has ever had an echocardiogram. No diaphoresis. No nausea, vomiting, or diarrhea. No recent productive cough or fever. Denies any sick contacts. He denies any chest pain. Pt. states that he does not have an PCP locally. Denies any peripheral edema. States that his urine output has been increased recently. Pt. is on CPAP for CRISTIAN and states that he has not had a sleep study recently either. He thinks his last sleep study was about 10 years ago. Patient continues to require oxygen around the clock. Sats are worse with activity. Patient has a mild non-productive cough. CXR continues to show mild edema. Sats mids 80's on room air. Patient was never on any O2 prior to this admission. Patient also has a new diagnosis of Aquired Hypothyroidism. Patient will be admitted to my service for acute cares today for hypoxia, new onset CHF, SOB, and O2 dependence. Diagnosis: Stroke: No Modified Ashton Scale: No Symptoms at All Modified Mariely Scale Score: 0 - Discharge Data Discharge Date: 01/09/19 Discharge Disposition: Home, Self-Care 01 Condition: Good - Discharge Diagnosis/Problem(s) (1) New onset of congestive heart failure SNOMED Code(s): 74921550 ICD Code: I50.9 - HEART FAILURE, UNSPECIFIED Status: Acute Priority: High Current Visit: Yes Onset Date: ~01/05/19 (2) CRISTIAN on CPAP SNOMED Code(s): 64357479 ICD Code: G47.33 - OBSTRUCTIVE SLEEP APNEA (ADULT) (PEDIATRIC); Z99.89 - DEPENDENCE ON OTHER ENABLING MACHINES AND DEVICES Status: Chronic Priority: Medium Current Visit: No (3) Essential hypertension SNOMED Code(s): 83165183 ICD Code: I10 - ESSENTIAL (PRIMARY) HYPERTENSION Status: Chronic Priority : Medium Current Visit: No (4) Mixed hyperlipidemia SNOMED Code(s): 666344265 ICD Code: E78.2 - MIXED HYPERLIPIDEMIA Status: Chronic Current Visit: No (5) Obesity (BMI 30-39.9) SNOMED Code(s): 010334189, 817478416 ICD Code: E66.9 - OBESITY, UNSPECIFIED Status: Chronic Current Visit: No (6) Hypothyroidism (acquired) SNOMED Code(s): 191309325 ICD Code: E03.9 - HYPOTHYROIDISM, UNSPECIFIED Status: Acute Priority: Medium Current Visit: Yes (7) DM2 (diabetes mellitus, type 2) SNOMED Code(s): 86132387 ICD Code: E11.9 - TYPE 2 DIABETES MELLITUS WITHOUT COMPLICATIONS Status: Chronic Current Visit: No Qualifiers: Diabetes mellitus computer terminal operator insulin use: without longterm use Diabetes mellitus complication status: without complication Qualified Code(s): E11.9 - Type 2 diabetes mellitus without complications - Patient Summary/Data Operative Procedure(s) Performed: None Complications: None Consults: None Labs Pending at D/C: None Recommended Follow-up Testing/Procedures: FU in clinic next week Planned Operative Procedure(s) after DC: Echo, PFT's Hospital Course: Patient initially had a BNP of 312 but xray showed pulmonary edema, patient was given 60/40 of Lasix. Diuresed well. Weights decreased, however patient continues to require O2. Patient failed Home Oxygen study and does require O2 for home. No chest pain. SOB improved at time of discharge. No issues with BM's or urination. Tolerated diet well. Heart rates low in the 50's and 60' which seems to be this patient's baseline. May consider pacermaker at some point. No focal neurological deficits. Labs remained stable, did not some Mag supp. - Patient Instructions Diet: Heart Healthy Diet, Low Sodium, Fluid Restriction Fluid Restriction: 1000 mL Activity: Rest and Relax Today Driving: Do Not Drive (for the next couple days) Showering/Bathing: May Shower Notify Provider of: Fever, Increased Pain, Nausea and/or Vomiting Other/Special Instructions: SOB, fluid retention, chest pain - Discharge Plan *PRESCRIPTION DRUG MONITORING PROGRAM REVIEWED*: Not Applicable *COPY OF PRESCRIPTION DRUG MONITORING REPORT IN PATIENT EMEKA: Not Applicable Home Medications: Home Meds Dorzolamide/Timolol [Cosopt 2%-0.5% Ophth Soln] 1 drop EYEBOTH BID 01/05/19 [ History] Esomeprazole [NexIUM] 40 mg PO DAILY 01/05/19 [History] Fenofibrate,Micronized [Fenofibrate] 134 mg PO DAILY 01/05/19 [History] Lisinopril 40 mg PO BID 01/05/19 [History] amLODIPine Besylate [Amlodipine Besylate] 10 mg PO DAILY 01/05/19 [History] cloNIDine HCl [Catapres] 0.2 mg PO TID 01/05/19 [History] metFORMIN HCl [Metformin HCl] 1,000 mg PO BID 01/05/19 [History] Oxygen Therapy Mode: Nasal Cannula Oxygen Flow Rate (L/min): 2 Maintain SpO2% greater than: 90 Patient Handouts: Heart Failure Referrals: Rigo Sanchez NP [Nurse Practitioner] - 01/12/19 1:40 pm - Discharge Summary/Plan Comment DC Time >30 min.: Yes - General Info Date of Service: 01/09/19 Admission Dx/Problem (Free Text: Acute new onset CHF Hypoxia O2 dependence SOB DM Type II Refractory Essential Hypertension Obesity Hyperlipidemia Hypothyroidism, Acquired Subjective Update: Patient states his breathing feels much better today. He appears to be somewhat SOB with speaking. Patient does state he is developing a cough since his initial admission. No chest pain on this admission. He denies any problems with urination or BM's. Is tolerating his diet ok. He continues to needs O2. Patient does desat into the 80's without oxygen. Otherwise, no complaints. Functional Status: Reports: Pain Controlled, Tolerating Diet, Ambulating, Urinating, New Symptoms Numeric/FACES Score: 0 - Review of Systems General: Denies: Fever, Chills Pulmonary: Denies: Shortness of Breath, Cough Cardiovascular: Denies: Chest Pain, Palpitations Gastrointestinal: Denies: Abdominal Pain, Nausea, Vomiting Skin: Reports: No Symptoms Neurological: Reports: No Symptoms - Patient Data Vitals - Most Recent: Last Vital Signs Temp 36.6 C 01/09/19 10:00 Pulse 75 01/09/19 10:00 Resp 18 01/09/19 10:00 BP 151/50 H 04/06/19 10:00 Pulse Ox 96 01/09/19 10:00 Weight - Most Recent: 122.697 kg I&O - Last 24 hours: Intake & Output 01/08/19 01/09/19 01/09/19 22:59 06:59 14:59 Intake Total 240 300 360 Output Total 400 600 Balance -160 -300 360 Lab Results - Last 24 hrs: Laboratory Results - last 24 hr 01/08/19 01/09/19 01/09/19 Range/Units 17:57 06:11 07:45 WBC 11.1 H (4.0-10.0) x10^3/uL RBC 4.65 (4.5-6.0) x10^6/uL Hgb 13.6 L (14.0-18.0) g/dL Hct 41.7 (40.0-52.0) % MCV 89.7 (78.0-93.0) fL MCH 29.2 (26.0-32.0) pg MCHC 32.6 (32.0-36.0) g/dL RDW Coeff of Anaya 13.8 (10.0-15.0) % Plt Count 214 (130-400) x10^3/uL Neut % (Auto) 73.1 (50.0-80.0) % Lymph % (Auto) 17.2 L (25.0-50.0) % [place] % (Auto) 9.0 (2.0-11.0) % Eos % (Auto) 0.4 (0.0-4.0) % Baso % (Auto) 0.3 (0.2-1.2) % Sodium (136-145) mmol/L Potassium (3.5-5.1) mmol/L Chloride (98-107) mmol/L Carbon Dioxide (21-32) mmol/L Anion Gap (10-20) mmol/L BUN (7-18) mg/dL Creatinine (0.70-1.30) mg/dL Est Cr Clr Drug Dosing mL/min Estimated GFR (MDRD) Glucose (74-106) mg/dL POC Glucose 114 H 112 H (74-106) mg/dL Calcium (8.5-10.1) mg/dL 01/09/19 Range/Units 07:45 WBC (4.0-10.0) x10^3/uL RBC (4.5-6.0) x10^6/uL Hgb (14.0-18.0) g/dL Hct (40.0-52.0) % MCV (78.0-93.0) fL MCH (26.0-32.0) pg MCHC (32.0-36.0) g/dL RDW Coeff of Anaya (10.0-15.0) % Plt Count (130-400) x10^3/uL Neut % (Auto) (50.0-80.0) % Lymph % (Auto) (25.0-50.0) % [place] % (Auto) (2.0-11.0) % Eos % (Auto) (0.0-4.0) % Baso % (Auto) (0.2-1.2) % Sodium 143 (136-145) mmol/L Potassium 3.5 (3.5-5.1) mmol/L Chloride 105 (98-107) mmol/L Carbon Dioxide 26 (21-32) mmol/L Anion Gap 15.5 (10-20) mmol/L BUN 31 H (7-18) mg/dL Creatinine 0.9 (0.70-1.30) mg/dL Est Cr Clr Drug Dosing 78.86 mL/min Estimated GFR (MDRD) > 60 Glucose 139 H (74-106) mg/dL POC Glucose (74-106) mg/dL Calcium 9.5 (8.5-10.1) mg/dL ANITA Results - Last 24 hrs: Microbiology 01/05/19 18:47 Aerobic Blood Culture - Preliminary Blood - Venous - Lab Draw NO GROWTH AFTER 3 DAYS Anaerobic Blood Culture - Preliminary NO GROWTH AFTER 3 DAYS 01/05/19 18:38 Aerobic Blood Culture - Preliminary Blood - Venous NO GROWTH AFTER 3 DAYS Anaerobic Blood Culture - Final Med Orders - Current: Current Medications Amlodipine Besylate (Norvasc) 10 mg PO BEDTIME [facility] Last Admin: 01/08/19 20:11 Dose: 10 mg Clonidine HCl (Catapres) 0.2 mg PO TID@0800,1400,2000 [facility] Last Admin: 01/09/19 08:08 Dose: 0.2 mg Dorzolamide/Timolol (Cosopt 2%-0.5% Ophth Soln) 0 ml EYEBOTH BID [facility] Last Admin: 01/09/19 08:09 Dose: 1 drop Fenofibrate (Fenofibrate) 134 mg PO DAILY [facility] Last Admin: 01/09/19 08:06 Dose: 134 mg Lisinopril (Prinivil) 40 mg PO BID [facility] Last Admin: 01/09/19 08:08 Dose: 40 mg Metformin HCl (Glucophage) 1,000 mg PO BID@1200,1800 [facility] Last Admin: 01/08/19 17:57 Dose: 1,000 mg Methylprednisolone Sodium Succinate (Solu-Medrol) 40 mg IVPUSH DAILY [facility] Last Admin: 01/09/19 08:06 Dose: 40 mg Omeprazole (Omeprazole) 40 mg PO DAILY [facility] Last Admin: 01/09/19 08:07 Dose: 40 mg Sodium Chloride (Saline Flush) 10 ml FLUSH ASDIRECTED PRN PRN Reason: Keep Vein Open Last Admin: 01/08/19 02:32 Dose: 10 ml Discontinued Medications Amlodipine Besylate (Norvasc) 10 mg PO BEDTIME [facility] Last Admin: 01/06/19 20:04 Dose: 10 mg Clonidine HCl (Catapres) 0.2 mg PO TID@0800,1400,2000 [facility] Furosemide (Lasix) 60 mg IV ONETIME ONE Stop: 01/05/19 19:59 Last Admin: 01/05/19 20:29 Dose: 60 mg Furosemide (Lasix) 40 mg IV ONETIME ONE Stop: 01/06/19 06:01 Last Admin: 01/06/19 05:57 Dose: 40 mg Magnesium Sulfate 2 gm/ Premix 50 mls @ 25 mls/hr IV ONETIME ONE Stop: 01/08/19 10:25 Last Admin: 01/08/19 09:29 Dose: 25 mls/hr Iopamidol (Isovue-300 (61%)) 100 ml IVPUSH ONETIME ONE Stop: 01/05/19 19:59 Last Admin: 01/05/19 20:27 Dose: 100 ml Methylprednisolone Sodium Succinate (Solu-Medrol) 40 mg IVPUSH Q8H [facility] Last Admin: 01/08/19 02:32 Dose: 40 mg Nitroglycerin (Nitrostat) 0.4 mg SL ONETIME ONE Stop: 01/05/19 18:22 Last Admin: 01/05/19 18:31 Dose: 0.4 mg Clonidine 0.2mg Pt (Own) 0.2 each PO TID [facility] Last Admin: 01/06/19 09:22 Dose: 0.2 each Lisinopril 40mg Pt (Own) 40 each PO BID [facility] Last Admin: 01/07/19 07:45 Dose: 40 each Metformin 1000mg (Pt Own) 1,000 each PO BID [facility] Last Admin: 01/06/19 10:35 Dose: Not Given Metformin 1000mg (Pt Own) 1,000 each PO BID@1200,1800 [facility] Last Admin: 01/07/19 11:52 Dose: 1,000 each Clonidine 0.2mg Pt (Own) 0 each PO TID@0800,1400,2000 [facility] Last Admin: 01/07/19 15:33 Dose: Not Given - Exam Quality Assessment: Reports: Supplemental Oxygen. Denies: DVT Prophylaxis, Skin Breakdown General: Reports: Alert, Oriented, Cooperative, No Acute Distress Lungs: Reports: Clear to Auscultation, Normal Respiratory Effort Cardiovascular: Reports: Regular Rhythm, Bradycardia GI/Abdominal Exam: Normal Bowel Sounds, Soft, Non-Tender Skin: Reports: Warm, Dry, Intact Neurological: Reports: No New Focal Deficit
== END 2019-01-09 13:00 | disposition home or self-care (01) | DRG 293 ==
LOC: VM.ED 18:07 → VM.MS 21:11 → OBSVTOIN 01-07 13:42
PROVIDERS: ADMIT Physician Assistant; ATTEND Nurse Practitioner Family
DX: I11.0 Hypertensive heart disease with heart failure (principal); I50.41 Acute combined systolic (congestive) and diastolic (congestive) heart failure; G47.33 Obstructive sleep apnea (adult) (pediatric); E03.9 Hypothyroidism, unspecified; E78.2 Mixed hyperlipidemia; E66.9 Obesity, unspecified; E11.9 Type 2 diabetes mellitus without complications; E78.00 Pure hypercholesterolemia, unspecified; Z99.89 Dependence on other enabling machines and devices; Z85.828 Personal history of other malignant neoplasm of skin; Z87.891 Personal history of nicotine dependence
CPT/HCPCS: 36415; 71045; 71046; 71275; 80048; 80053; 82962; 83036; 83605; 83735; 83880; 84100; 84443; 84484; 85025; 85379; 85610; 86140; 87040; 87804; 87804-59; 93005; 94760; 96374; 96375; 96376; 99285-25; A9270-GY; G0378; J1940; J2920; J3475; Q9967

== ENCOUNTER 2019-10-25 08:54 | Day surgery (SDC) | payer MEDICARE ==
[~2019-10-25 08:54] MED LIST: Lactated Ringers 1,000 ML IV SCH
[2019-10-25] MEDS ORDERED: fentaNYL 100 MCG/2 ML SDV ONE (09:45)
[2019-10-25] MEDS ORDERED: Propofol 200 MG/20 ML SDV ONE (09:45)
--- NOTE | 2019-10-25 11:27 | OR ---
PREOPERATIVE DIAGNOSIS: History of esophagitis. POSTOPERATIVE DIAGNOSIS: History of esophagitis. PROCEDURE PERFORMED: Esophagogastroduodenoscopy with biopsy of gastroesophageal junction. INDICATIONS: Mr. Newman is a 69-year-old male who had an EGD done for gastroesophageal reflux disease about 5 years ago down in [place]. 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 Symptoms are completely controlled with medications. PROCEDURE IN DETAIL: This was done in the endoscopy suite. Sedation given per Anesthesia. The scope was inserted into the pharynx across the esophagus into the stomach through the pylorus into the first and second portions of the duodenum. First and second portions of duodenum were normal. Scope was slowly withdrawn and retroflexed. Fundus and body of the stomach were normal. Antrum was normal. There was perhaps again mild inflammatory changes to the GE junction. I did do 2 biopsies of this to check for any progression of his disease. The scope was then withdrawn the remainder of the way. FINAL DIAGNOSIS: Mild esophagitis. PLAN: Per biopsies when available. BKD: 10/25/2019 11:03:27 MODL: 10/25/2019 11:21:15 /[id number]
== END 2019-10-25 12:16 | disposition home or self-care (01) ==
LOC: VM.SDS 08:54
PROVIDERS: ATTEND Surgery
DX: K21.9 Gastro-esophageal reflux disease without esophagitis (principal); I11.0 Hypertensive heart disease with heart failure; I50.43 Acute on chronic combined systolic (congestive) and diastolic (congestive) heart failure; E11.69 Type 2 diabetes mellitus with other specified complication; E78.5 Hyperlipidemia, unspecified; E05.90 Thyrotoxicosis, unspecified without thyrotoxic crisis or storm; E11.59 Type 2 diabetes mellitus with other circulatory complications; G47.33 Obstructive sleep apnea (adult) (pediatric); E66.9 Obesity, unspecified; Z87.19 Personal history of other diseases of the digestive system; Z99.89 Dependence on other enabling machines and devices; Z68.39 Body mass index [BMI] 39.0-39.9, adult; Z79.899 Other long term (current) drug therapy; Z79.4 Long term (current) use of insulin
CPT/HCPCS: 43239; 82962; J2704; J3010; J7120